=== PATIENT | female | born 1985 | race American Indian/Alaskan Native ===

== ENCOUNTER 2016-08-30 16:06 | Emergency (ER) | payer SELFPAY ==
--- NOTE | 2016-08-30 19:58 | Emergency Department Report ---
ED ENT HPI - General Chief complaint: Dental/Oral Stated complaint: TOOTHACHE Time Seen by Provider: 08/30/16 19:25 Source: patient Mode of arrival: Ambulatory Limitations: No Limitations - History of Present Illness Initial comments: Patient comes into the ER today with complaints of left upper dental pain as well as left facial pain. Patient states that she has had a bad tooth in the area for some time but it has not been bothering her until the past few days. Patient has been putting [id number] medication on the tooth without any relief. Patient does note that she has had no appointment with her dentist in 5 days. Patient primarily comes in today due to the pain. MD complaint: tooth pain -: days(s) (3) - Related Data Previous Rx's Medication Instructions Recorded Last Taken Type Amoxicillin 1,000 mg PO BID #40 capsule 08/30/16 Unknown Rx Fluconazole [Diflucan TAB] 150 mg PO Q72HR PRN #4 tablet 08/30/16 Unknown Rx traMADol [Ultram] 50 mg PO Q4HR PRN #20 tablet 08/30/16 Unknown Rx Allergies Allergy/AdvReac Type Severity Reaction Status Date / Time No Known Allergies Allergy Verified 08/30/16 16:30 ED Dental HPI - General Chief complaint: Dental/Oral Stated complaint: TOOTHACHE Time Seen by Provider: 08/30/16 19:25 Source: patient Mode of arrival: Ambulatory Limitations: No Limitations - Related Data Previous Rx's Medication Instructions Recorded Last Taken Type Amoxicillin 1,000 mg PO BID #40 capsule 08/30/16 Unknown Rx Fluconazole [Diflucan TAB] 150 mg PO Q72HR PRN #4 tablet 08/30/16 Unknown Rx traMADol [Ultram] 50 mg PO Q4HR PRN #20 tablet 08/30/16 Unknown Rx Allergies Allergy/AdvReac Type Severity Reaction Status Date / Time No Known Allergies Allergy Verified 08/30/16 16:30 ED Review of Systems ROS: Stated complaint: TOOTHACHE Other details as noted in HPI Constitutional: denies: chills, fever Eyes: denies: eye pain, eye discharge, vision change ENT: dental pain. denies: ear pain, throat pain Respiratory: denies: cough, shortness of breath, wheezing Cardiovascular: denies: chest pain, palpitations Endocrine: no symptoms reported Gastrointestinal: denies: abdominal pain, nausea, diarrhea Genitourinary: denies: urgency, dysuria, discharge Musculoskeletal: denies: back pain, joint swelling, arthralgia Skin: denies: rash, lesions Neurological: denies: headache, weakness, paresthesias Psychiatric: denies: anxiety, depression Hematological/Lymphatic: denies: easy bleeding, easy bruising ED Past Medical Hx - Past Medical History Previous Medical History?: No Hx Hypertension: No Hx Congestive Heart Failure: No Hx Diabetes: No Hx Deep Vein Thrombosis: No Hx Renal Disease: No Hx Sickle Cell Disease: No Hx Seizures: No Hx Asthma: No Hx COPD: No Hx HIV: No - Surgical History Additional Surgical History: X 2 - Social History Smoking Status: Current Every Day Smoker Substance Use Type: None - Medications Home Medications: Home Medications Medication Instructions Recorded Confirmed Last Taken Type Amoxicillin 1,000 mg PO BID #40 capsule 08/30/16 Unknown Rx Fluconazole [Diflucan TAB] 150 mg PO Q72HR PRN #4 tablet 08/30/16 Unknown Rx traMADol [Ultram] 50 mg PO Q4HR PRN #20 tablet 08/30/16 Unknown Rx ED Physical Exam - General Limitations: No Limitations General appearance: alert, in no apparent distress - Head Head exam: Present: atraumatic, normocephalic - Eye Eye exam: Present: normal appearance, PERRL - ENT ENT exam: Present: mucous membranes moist, TM's normal bilaterally, normal external ear exam, other (left upper dental cavities with [id number] dental filling noted. Mild surrounding gum inflammation without any obvious abscess noted. Left maxillary sinus tenderness. Left greater than right nasal mucosa redness and turbinate swelling.) - Neck Neck exam: Present: normal inspection - Respiratory Respiratory exam: Present: normal lung sounds bilaterally. Absent: respiratory distress - Cardiovascular Cardiovascular Exam: Present: regular rate, normal rhythm. Absent: systolic murmur, diastolic murmur, rubs, gallop - GI/Abdominal GI/Abdominal exam: Present: soft, normal bowel sounds - Extremities Exam Extremities exam: Present: normal inspection - Back Exam Back exam: Present: normal inspection - Neurological Exam Neurological exam: Present: alert, oriented X3 - Psychiatric Psychiatric exam: Present: normal affect, normal mood - Skin Skin exam: Present: warm, dry, intact, normal color. Absent: rash ED Course Vital Signs 08/30/16 16:25 Temperature 98.9 F Pulse Rate 65 Respiratory 17 Rate Blood Pressure 115/57 O2 Sat by Pulse 100 Oximetry ED Medical Decision Making - Medical Decision Making Patient is nontoxic and hemodynamically stable. I will start patient on some antibiotics and pain medications and encourage patient to keep her dental appointment next week. Patient is in agreement with treatment plan the patient is stable for discharge. Critical care attestation.: If time is entered above; I have spent that time in minutes in the direct care of this critically ill patient, excluding procedure time. ED Disposition Clinical Impression: Pain, dental, Facial pain Disposition: DC- TO HOME OR SELFCARE Is pt being admited?: No Does the pt Need Aspirin: No Condition: Good Instructions: Toothache (ED), Sinusitis (ED) Prescriptions: Amoxicillin 1,000 mg PO BID #40 capsule traMADol [Ultram] 50 mg PO Q4HR PRN #20 tablet PRN Reason: Pain Fluconazole [Diflucan TAB] 150 mg PO Q72HR PRN #4 tablet PRN Reason: Vaginal Irritation Referrals: PRIMARY CARE, [Primary Care Provider] - 3-5 Days Forms: Work/School Release Form(ED) Time of Disposition: 19:58
[2016-08-30 20:06] VITALS: BP 121/76
== END 2016-08-30 20:05 | disposition home or self-care (01) ==
LOC: ED 16:06
DX: K08.89 Other specified disorders of teeth and supporting structures (principal); R51 Headache; F17.200 Nicotine dependence, unspecified, uncomplicated
CPT/HCPCS: 99282

== ENCOUNTER 2016-09-01 09:03 | Emergency (ER) | payer SELFPAY ==
[2016-09-01 09:10] VITALS: BP 116/63
[2016-09-01] MEDS ORDERED: CLEOCIN IM ONE (11:32)
[2016-09-01] MEDS ORDERED: ZOFRAN ODT PO ONE (11:32)
[2016-09-01] MEDS ORDERED: MORPHINE IM ONE (11:32)
[2016-09-01] MEDS ORDERED: TORADOL IM ONE (11:32)
--- NOTE | 2016-09-01 11:39 | Emergency Department Report ---
ED ENT HPI - General Chief complaint: Pain General Stated complaint: LEFT SIDE OF FACE SWELLING Time Seen by Provider: 09/01/16 11:22 Source: patient Mode of arrival: Ambulatory Limitations: No Limitations - History of Present Illness Initial comments: PT c/o that her "whole face is swollen" PT states she was seen on Friday after having L upper toothache x 3 days. PT states her last dental visit was a year ago. PT states she had a cavity in her L upper tooth and it gradually broke off. PT states she bought an otc dental filling that will stay in place for two weeks and then need to be removed by a Dentist. PT states that helped her pain for a day, but when it was no longer helping, she came into this ED. PT states she was dx with sinus infection and given antibiotics. PT states that she started the antibiotics on Friday and the next day the left side of her face started to swell. PT states she has a dental appointment on Fri. PT states the tramadol is not helping and her pain is 10/10. MD complaint: tooth pain (and L sided facial swelling ) Onset/Timin -: Gradual, days(s) 1 - tooth pain, dental decay, white filling Severity: severe Severity scale (0 -10): 10 Quality: constant Consistency: constant Improves with: other (heat helps briefly ) Worsens with: eating, other (palpation) Context- Dental: history of dental caries, poor dental care (last dental visit 1 year ago ) Associated Symptoms: denies: fever, pain with swallowing, sore throat - Related Data Previous Rx's Medication Instructions Recorded Last Taken Type Amoxicillin 1,000 mg PO BID #40 capsule 08/30/16 Unknown Rx Fluconazole [Diflucan TAB] 150 mg PO Q72HR PRN #4 tablet 08/30/16 Unknown Rx Acetaminophen/Codeine [Tylenol #3] 1 tab PO Q6H PRN #12 tab 09/01/16 Unknown Rx Chlorhexidine Mouthwash [Peridex] 15 ml MM BID 7 Days 09/01/16 Unknown Rx Clindamycin [Clindamycin CAP] 300 mg PO Q8H #30 cap 09/01/16 Unknown Rx Ibuprofen [Motrin] 600 mg PO Q8H PRN #15 tablet 09/01/16 Unknown Rx Allergies Allergy/AdvReac Type Severity Reaction Status Date / Time No Known Allergies Allergy Verified 08/30/16 16:30 ED Dental HPI - General Chief complaint: Pain General Stated complaint: LEFT SIDE OF FACE SWELLING Time Seen by Provider: 09/01/16 11:22 Source: patient Mode of arrival: Ambulatory Limitations: No Limitations - Related Data Previous Rx's Medication Instructions Recorded Last Taken Type Amoxicillin 1,000 mg PO BID #40 capsule 08/30/16 Unknown Rx Fluconazole [Diflucan TAB] 150 mg PO Q72HR PRN #4 tablet 08/30/16 Unknown Rx Acetaminophen/Codeine [Tylenol #3] 1 tab PO Q6H PRN #12 tab 09/01/16 Unknown Rx Chlorhexidine Mouthwash [Peridex] 15 ml MM BID 7 Days 09/01/16 Unknown Rx Clindamycin [Clindamycin CAP] 300 mg PO Q8H #30 cap 09/01/16 Unknown Rx Ibuprofen [Motrin] 600 mg PO Q8H PRN #15 tablet 09/01/16 Unknown Rx Allergies Allergy/AdvReac Type Severity Reaction Status Date / Time No Known Allergies Allergy Verified 08/30/16 16:30 ED Review of Systems ROS: Stated complaint: LEFT SIDE OF FACE SWELLING Other details as noted in HPI Comment: All other systems reviewed and negative Constitutional: denies: chills, fever ENT: dental pain Gastrointestinal: other (tolerating Amoxil ). denies: abdominal pain, nausea, vomiting, diarrhea Genitourinary: denies: abnormal menses Neurological: headache. denies: abnormal gait ED Past Medical Hx - Past Medical History Previous Medical History?: Yes Hx Hypertension: No Hx Congestive Heart Failure: No Hx Diabetes: No Hx Deep Vein Thrombosis: No Hx Renal Disease: No Hx Sickle Cell Disease: No Hx Seizures: No Hx Asthma: No Hx COPD: No Hx HIV: No Additional medical history: Toothache pain, Sinusitis - Surgical History Past Surgical History?: Yes Additional Surgical History: X 2 - Social History Smoking Status: Current Every Day Smoker Substance Use Type: Prescribed - Medications Home Medications: Home Medications Medication Instructions Recorded Confirmed Last Taken Type Amoxicillin 1,000 mg PO BID #40 capsule 08/30/16 Unknown Rx Fluconazole [Diflucan TAB] 150 mg PO Q72HR PRN #4 tablet 08/30/16 Unknown Rx Acetaminophen/Codeine [Tylenol #3] 1 tab PO Q6H PRN #12 tab 09/01/16 Unknown Rx Chlorhexidine Mouthwash [Peridex] 15 ml MM BID 7 Days 09/01/16 Unknown Rx Clindamycin [Clindamycin CAP] 300 mg PO Q8H #30 cap 09/01/16 Unknown Rx Ibuprofen [Motrin] 600 mg PO Q8H PRN #15 tablet 09/01/16 Unknown Rx ED Physical Exam - General Limitations: No Limitations General appearance: alert, in no apparent distress - Head Head exam: Present: atraumatic, normocephalic, other (L facial swelling noted to L maxillary region. ) - Eye Eye exam: Present: normal appearance, PERRL, EOMI. Absent: conjunctival injection, nystagmus - ENT ENT exam: Present: normal orophraynx, mucous membranes moist, TM's normal bilaterally, normal external ear exam - Expanded ENT Exam Expanded Mouth exam: Present: tongue normal. Absent: drooling, trismus, muffled voice Teeth exam: Present: dental caries (multiple teeth with dental decay ), dental tenderness # (11, 12 and 13 ), gingival enlargement (no palpable abscess, but gums erythematous and edematous ) 1 - Dental Tenderness, Other (dental decay) Throat exam: Positive: normal inspection. Negative: tonsillomegaly, tonsillar exudate, R peritonsillar mass, L peritonsillar mass - Neck Neck exam: Present: normal inspection. Absent: tenderness, full ROM - Respiratory Respiratory exam: Present: normal lung sounds bilaterally. Absent: respiratory distress - Cardiovascular Cardiovascular Exam: Present: regular rate, normal rhythm, normal heart sounds - Extremities Exam Extremities exam: Present: normal inspection, full ROM - Back Exam Back exam: Present: normal inspection, full ROM - Neurological Exam Neurological exam: Present: alert, oriented X3 - Psychiatric Psychiatric exam: Present: normal affect, normal mood - Skin Skin exam: Present: warm, dry, intact, normal color. Absent: erythema ED Course Vital Signs 09/01/16 09:05 Temperature 98.2 F Pulse Rate 68 Respiratory 20 Rate Blood Pressure 116/63 O2 Sat by Pulse 100 Oximetry - Reevaluation(s) Reevaluation #1: 09/01/16 12:08 PT aware of dx and plan of care. PT aware she must follow up with Dentist. PT has no questions at this time. Reevaluation #2: 09/01/16 12:30 PT given Clindamycin/ toradol/ morphine/ zofran. PT reports decrease in pain. PT has no questions at this time. - Pulse Oximetry Interpretation Digit-Finger Initial Pulse Oximetry Readin Actions Taken: none ED Medical Decision Making - Differential Diagnosis abscess, cellulitis Critical Care Time: No Critical care attestation.: If time is entered above; I have spent that time in minutes in the direct care of this critically ill patient, excluding procedure time. ED Disposition Disposition: DC- TO HOME OR SELFCARE Is pt being admited?: No Does the pt Need Aspirin: No Condition: Stable Instructions: Dental Abscess (ED) Additional Instructions: Swish and spit with warm salt water at least 4 times a day Good oral hygiene No driving or ETOH after taking Tylenol #3 Do not take Tylenol #3 and Ultram at the same time Stop Amoxil Start Clindamycin Return in 2 days for recheck, sooner if worsening Prescriptions: Acetaminophen/Codeine [Tylenol #3] 1 tab PO Q6H PRN #12 tab PRN Reason: Pain , Severe (7-10) Chlorhexidine Mouthwash [Peridex] 15 ml MM BID 7 Days Clindamycin [Clindamycin CAP] 300 mg PO Q8H #30 cap Ibuprofen [Motrin] 600 mg PO Q8H PRN #15 tablet PRN Reason: Pain Referrals: PRIMARY CARE, [Primary Care Provider] - 3-5 Days DERICK DE LA VEGA MD [Staff Physician] - 3-5 Days [facility] [Outside] - 3-5 Days [facility] [Outside] - 3-5 Days Forms: Accompanied Note, Work/School Release Form(ED) Time of Disposition: 12:10
== END 2016-09-01 12:41 | disposition home or self-care (01) ==
LOC: ED 09:03
DX: K08.89 Other specified disorders of teeth and supporting structures (principal); R60.9 Edema, unspecified; F17.210 Nicotine dependence, cigarettes, uncomplicated
CPT/HCPCS: 96372; 99282; J1885; J2270; Q0162

== ENCOUNTER 2016-09-22 12:28 | Emergency (ER) | payer SELFPAY ==
[2016-09-22] MEDS ORDERED: TORADOL IM ONE ×2 (15:48→15:56)
[2016-09-22 15:54] VITALS: BP 102/65
--- NOTE | 2016-09-22 16:38 | Cat Scan Report ---
FINAL REPORT PROCEDURE: CT facial bones without contrast. TECHNIQUE: Computerized tomography of the facial bones and soft tissues with axial, sagittal and coronal sections performed from the cranial aspect of the frontal sinuses to the caudal portion of the mandible without contrast material. HISTORY: Facial abscess, left upper tooth. COMPARISON: No prior studies are available for comparison. FINDINGS: The facial bones appear intact. There are no fractures nor signs of osteomyelitis. The maxilla and mandible appear intact. There are no lucencies around any of the visible teeth roots to suggest a tooth abscess. There is a lucency involving the posterior crown enamel of tooth number 12. This likely represented a dental dionisio. Referral to a dentist is recommended. There is mild infiltration of the subcutaneous fat adjacent to this tooth. This is consistent with inflammation. There is no fluid to suggest a soft tissue abscess. The mastoid air cells and paranasal sinuses are clear. IMPRESSION: Probable dental dionisio involving tooth 12. Probable mild inflammation in the overlying soft tissues.
--- NOTE | 2016-09-22 18:29 | Emergency Department Report ---
Entered by TOSHIA OWENS, acting as scribe for CHESTER BEGUM NP. ED ENT HPI - General Chief complaint: Dental/Oral Stated complaint: TOOTHACHE/ABSCESS Time Seen by Provider: 09/22/16 15:29 Source: patient Mode of arrival: Ambulatory Limitations: No Limitations - History of Present Illness Initial comments: This is a 31-year-old female patient well-nourished with nontoxic or ill in appearance that presents for evaluation of dental abscess. Patient stated was seen in the ED two weeks ago, was found to have an dental abscess, and was started on antibiotics (Clindamycin) which subsided her swelling. Initially the abscess resolved, but returned 3 days after she completed the abx course. Patient stated she did follow-up with a dentist and was given amoxicillin with no relief. Patient stated last night her left facial swelling had returned and she stated she thinks the abscess is returned. Patient denies any pus, drainage , stiff neck, CP, SOB, fever, chills, headache, numbness, tingling, n/v, abd pain. Patient denies any allergies. Denies PMH. MD complaint: tooth pain -: Gradual, week(s) (2) Location: tooth # (11,12,13) Severity: moderate Consistency: constant Improves with: other (Clindamycin) Worsens with: none Context- Dental: history of dental caries, poor dental care Associated Symptoms: gum swelling, toothache. denies: fever, cough, pain with swallowing, sore throat, tinnitus, hearing loss, discharge from ear, rhinorrhea - Related Data Previous Rx's Medication Instructions Recorded Last Taken Type Amoxicillin 1,000 mg PO BID #40 capsule 08/30/16 Unknown Rx Fluconazole [Diflucan TAB] 150 mg PO Q72HR PRN #4 tablet 08/30/16 Unknown Rx Acetaminophen/Codeine [Tylenol #3] 1 tab PO Q6H PRN #12 tab 09/01/16 Unknown Rx Chlorhexidine Mouthwash [Peridex] 15 ml MM BID 7 Days 09/01/16 Unknown Rx Clindamycin [Clindamycin CAP] 300 mg PO Q8H #30 cap 09/01/16 Unknown Rx Ibuprofen [Motrin] 600 mg PO Q8H PRN #15 tablet 09/01/16 Unknown Rx Clindamycin [Clindamycin CAP] 450 mg PO Q8HR 7 Days 09/22/16 Unknown Rx Ibuprofen [Motrin 600 MG tab] 600 mg PO Q8H PRN #20 tablet 09/22/16 Unknown Rx predniSONE [Deltasone] 20 mg PO BID #10 tab 09/22/16 Unknown Rx Allergies Allergy/AdvReac Type Severity Reaction Status Date / Time No Known Allergies Allergy Verified 09/22/16 13:23 ED Dental HPI - General Chief complaint: Dental/Oral Stated complaint: TOOTHACHE/ABSCESS Time Seen by Provider: 09/22/16 15:29 Source: patient Mode of arrival: Ambulatory Limitations: No Limitations - Related Data Previous Rx's Medication Instructions Recorded Last Taken Type Amoxicillin 1,000 mg PO BID #40 capsule 08/30/16 Unknown Rx Fluconazole [Diflucan TAB] 150 mg PO Q72HR PRN #4 tablet 08/30/16 Unknown Rx Acetaminophen/Codeine [Tylenol #3] 1 tab PO Q6H PRN #12 tab 09/01/16 Unknown Rx Chlorhexidine Mouthwash [Peridex] 15 ml MM BID 7 Days 09/01/16 Unknown Rx Clindamycin [Clindamycin CAP] 300 mg PO Q8H #30 cap 09/01/16 Unknown Rx Ibuprofen [Motrin] 600 mg PO Q8H PRN #15 tablet 09/01/16 Unknown Rx Clindamycin [Clindamycin CAP] 450 mg PO Q8HR 7 Days 09/22/16 Unknown Rx Ibuprofen [Motrin 600 MG tab] 600 mg PO Q8H PRN #20 tablet 09/22/16 Unknown Rx predniSONE [Deltasone] 20 mg PO BID #10 tab 09/22/16 Unknown Rx Allergies Allergy/AdvReac Type Severity Reaction Status Date / Time No Known Allergies Allergy Verified 09/22/16 13:23 ED Review of Systems Comment: All other systems reviewed and negative Constitutional: no symptoms reported. denies: chills, fever Eyes: denies: eye pain ENT: dental pain. denies: ear pain, throat pain, hearing loss, epistaxis Respiratory: no symptoms reported. denies: cough, shortness of breath Cardiovascular: denies: chest pain, palpitations Endocrine: no symptoms reported Gastrointestinal: denies: abdominal pain, nausea, vomiting Genitourinary: denies: urgency, dysuria, discharge Musculoskeletal: denies: back pain, joint swelling, arthralgia Skin: denies: rash Neurological: denies: headache Psychiatric: denies: anxiety, depression Hematological/Lymphatic: denies: easy bleeding, easy bruising ED Past Medical Hx - Past Medical History Hx Hypertension: No Hx Congestive Heart Failure: No Hx Diabetes: No Hx Deep Vein Thrombosis: No Hx Renal Disease: No Hx Sickle Cell Disease: No Hx Seizures: No Hx Asthma: No Hx COPD: No Hx HIV: No Additional medical history: Toothache pain, Sinusitis - Surgical History Additional Surgical History: X 2 - Social History Smoking Status: Never Smoker Substance Use Type: Alcohol - Medications Home Medications: Home Medications Medication Instructions Recorded Confirmed Last Taken Type Amoxicillin 1,000 mg PO BID #40 capsule 08/30/16 Unknown Rx Fluconazole [Diflucan TAB] 150 mg PO Q72HR PRN #4 tablet 08/30/16 Unknown Rx Acetaminophen/Codeine [Tylenol #3] 1 tab PO Q6H PRN #12 tab 09/01/16 Unknown Rx Chlorhexidine Mouthwash [Peridex] 15 ml MM BID 7 Days 09/01/16 Unknown Rx Clindamycin [Clindamycin CAP] 300 mg PO Q8H #30 cap 09/01/16 Unknown Rx Ibuprofen [Motrin] 600 mg PO Q8H PRN #15 tablet 09/01/16 Unknown Rx Clindamycin [Clindamycin CAP] 450 mg PO Q8HR 7 Days 09/22/16 Unknown Rx Ibuprofen [Motrin 600 MG tab] 600 mg PO Q8H PRN #20 tablet 09/22/16 Unknown Rx predniSONE [Deltasone] 20 mg PO BID #10 tab 09/22/16 Unknown Rx ED Physical Exam - General Limitations: No Limitations General appearance: alert, in no apparent distress - Head Head exam: Present: atraumatic, normocephalic, normal inspection - Eye Eye exam: Present: normal appearance, PERRL, EOMI. Absent: scleral icterus, conjunctival injection, nystagmus, periorbital swelling, periorbital tenderness Pupils: Present: normal accommodation - ENT ENT exam: Present: normal exam, normal orophraynx, mucous membranes moist, TM's normal bilaterally, normal external ear exam - Expanded ENT Exam Expanded Mouth exam: Present: normal external inspection, tongue normal. Absent: drooling, trismus, muffled voice, tongue elevation, laceration Teeth exam: Present: dental caries, dental tenderness # (11,12,13), gingival enlargement, other (Uvula midline. No palpable abscess. No flutance noted. No swelling. No pus or drianage noted.) 1 - Dental Tenderness Throat exam: Positive: normal inspection. Negative: tonsillar erythema, tonsillomegaly, tonsillar exudate, R peritonsillar mass, L peritonsillar mass - Neck Neck exam: Present: normal inspection, full ROM. Absent: tenderness, meningismus, lymphadenopathy, thyromegaly - Respiratory Respiratory exam: Present: normal lung sounds bilaterally, respiratory distress. Absent: wheezes, rales, rhonchi, stridor, chest wall tenderness, accessory muscle use, decreased breath sounds, prolonged expiratory - Cardiovascular Cardiovascular Exam: Present: regular rate, normal rhythm, normal heart sounds. Absent: bradycardia, tachycardia, irregular rhythm - GI/Abdominal GI/Abdominal exam: Present: soft. Absent: tenderness, guarding, rebound, rigid - Extremities Exam Extremities exam: Present: normal inspection, full ROM, normal capillary refill. Absent: tenderness, pedal edema, joint swelling, calf tenderness - Back Exam Back exam: Present: normal inspection, full ROM. Absent: tenderness, CVA tenderness (R), CVA tenderness (L), muscle spasm, paraspinal tenderness, vertebral tenderness, rash noted - Neurological Exam Neurological exam: Present: alert, oriented X3, CN II-XII intact, normal gait, reflexes normal - Psychiatric Psychiatric exam: Present: normal affect, normal mood - Skin Skin exam: Present: warm, dry, intact, normal color ED Course Vital Signs 09/22/16 09/22/16 09/22/16 13:23 15:52 16:14 Temperature 98.9 F 98.2 F Pulse Rate 70 62 Respiratory 20 16 Rate Blood Pressure 122/79 Blood Pressure 102/65 [Left] O2 Sat by Pulse 10 L 99 100 Oximetry - Reevaluation(s) Reevaluation #1: 09/22/16 17:16 Patient is able to speak in full sentences with no signs of distress noted. ED Medical Decision Making - Medical Decision Making Ed course: This is a 31-year-old female that presents with dental caries and gingivitis 1- patient was examined by myself. A CT scan of the face without contrast has been obtained. Dictated by Dr. Serrano. Impression; probable dental caries involving tooth 12. Probable mild inflammation and over lying soft tissues. There are no visible tooth roots to suggest a tooth abscess. Patient was notified of CT findings with the further was noted by the patient. 2- patient received Toradol and Solu-Medrol IM and ED. 3- patient was discharged with clindamycin 300 mg by mouth and was instructed to this full course of antibiotics that was prescribed. 4- patient was referred to a dentist and patient was instructed to follow-up in 24 hours or if symptoms such as increased swelling, pus, drainage, fever, chills , stiff neck, headache, blurry vision chest and short of breath return to emergency room as was possible. 5- at time time of discharge, the patient does not seem toxic or ill in appearance. No acute signs of distress noted. Patient agrees to discharge treatment plan of care. No further questions noted by the patient. ED Disposition Clinical Impression: Dental caries, Gingivitis Disposition: DC- TO HOME OR SELFCARE Is pt being admited?: No Does the pt Need Aspirin: No Condition: Stable Instructions: Dental Caries (ED), Gingivitis (ED), Clindamycin (By mouth), Prednisone (By mouth) Additional Instructions: follow-up in 24 hours with dentist or if symptoms such as increased swelling, pus, drainage, fever, chills, stiff neck, headache, blurry vision chest and short of breath return to emergency room as was possible. Take full course of antibiotics and prednisone as prescribed. Prescriptions: Clindamycin [Clindamycin CAP] 450 mg PO Q8HR 7 Days Ibuprofen [Motrin 600 MG tab] 600 mg PO Q8H PRN #20 tablet PRN Reason: Pain predniSONE [Deltasone] 20 mg PO BID #10 tab Referrals: PRIMARY CAREMD [Primary Care Provider] - 3-5 Days [facility] [Outside] - 24 Hours ELHAM YORK JR, MD [Staff Physician] - 3-5 Days [facility] [Outside] - 3-5 Days Forms: Work/School Release Form(ED) This documentation as recorded by the scribROMAN jay SHALANE,accurately reflects the service I personally performed and the decisions made by me,CHESTER BEGUM, NICOLE.
== END 2016-09-22 18:35 | disposition home or self-care (01) ==
LOC: ED 12:28
DX: K02.9 Dental caries, unspecified (principal); K05.10 Chronic gingivitis, plaque induced
CPT/HCPCS: 70486; 96372; 99283; J1885; J2920

== ENCOUNTER 2017-08-13 14:21 | Emergency (ER) | payer SELFPAY ==
--- NOTE | 2017-08-13 16:21 | XRay Report ---
FINAL REPORT EXAM: XR HAND 3+V RT HISTORY: pain after pick out hand heavy tote at work COMPARISON: None. TECHNIQUE: Two views of the right hand FINDINGS: There is normal alignment without acute fracture or dislocation. The joint spaces are preserved. The overlying soft tissues are intact. IMPRESSION: No acute bony abnormality of the right hand.
[2017-08-13 20:18] VITALS: BP 101/65
--- NOTE | 2017-08-13 20:28 | Emergency Department Report ---
Upper Extremity - HPI Chief Complaint: Extremity Injury, Upper Stated Complaint: RT FINGER PAIN TO WRIST Time Seen by Provider: 08/13/17 20:22 Upper Extremity: Right Middle Finger Occurred When: >5 Days Mechanism: Hyperflexion Symptoms: Yes Pain with Movement, No Deformity, No Limited Range of Movement, No Numbness, No Weakness, No Swelling, No Bruising/Ecchymosis, No Laceration or Abrasion ED Review of Systems ROS: Stated complaint: RT FINGER PAIN TO WRIST Other details as noted in HPI Comment: All other systems reviewed and negative Constitutional: denies: chills, fever ENT: denies: throat pain Respiratory: denies: cough Cardiovascular: denies: chest pain, palpitations ED Past Medical Hx - Past Medical History Previous Medical History?: No Hx Hypertension: No Hx Congestive Heart Failure: No Hx Diabetes: No Hx Deep Vein Thrombosis: No Hx Renal Disease: No Hx Sickle Cell Disease: No Hx Seizures: No Hx Asthma: No Hx COPD: No Hx HIV: No Additional medical history: Toothache pain, Sinusitis - Surgical History Past Surgical History?: Yes Additional Surgical History: X 2 - Social History Smoking Status: Never Smoker Substance Use Type: None - Medications Home Medications: Home Medications Medication Instructions Recorded Confirmed Last Taken Type Amoxicillin 1,000 mg PO BID #40 capsule 08/30/16 Unknown Rx Fluconazole [Diflucan TAB] 150 mg PO Q72HR PRN #4 tablet 08/30/16 Unknown Rx Acetaminophen/Codeine [Tylenol #3] 1 tab PO Q6H PRN #12 tab 09/01/16 Unknown Rx Chlorhexidine Mouthwash [Peridex] 15 ml MM BID 7 Days bottle 09/01/16 Unknown Rx Clindamycin [Clindamycin CAP] 300 mg PO Q8H #30 cap 09/01/16 Unknown Rx Ibuprofen [Motrin] 600 mg PO Q8H PRN #15 tablet 09/01/16 Unknown Rx Clindamycin [Clindamycin CAP] 450 mg PO Q8HR 7 Days capsule 09/22/16 Unknown Rx Ibuprofen [Motrin 600 MG tab] 600 mg PO Q8H PRN #20 tablet 09/22/16 Unknown Rx predniSONE [Deltasone] 20 mg PO BID #10 tab 09/22/16 Unknown Rx Upper Extremity Exam - Exam General: Vital signs noted. No distress. Alert and acting appropriately. Head and Torso: No HEENT Abnormality, No Neck Tenderness, No Chest/Lungs Abnormality, No Abdominal Tenderness, No Back Tenderness Shoulder Exam: Yes Normal Range of Motion in Shoulder, No Shoulder Tenderness, No Clavicle Tenderness, No Shoulder Deformity, No AC Joint Tenderness Arm Exam: No Arm/Humerus Tenderness Wrist: No Wrist Tenderness, No Normal ROM in Wrist, No Wrist Deformity, No Snuffbox Tenderness, No Pain with Axial Thumb Compression Hand: Yes Digit Tenderness, No Hand Tenderness, No Hand Deformity, No Normal ROM in Digit(s), No Digit(s) Deformity, No Tendon Dysfunction CMS Exam: Yes Normal Distal Pulses, Yes Normal Capillary Refill, Yes Normal Distal Sensation, No Broken Skin ED Course Vital Signs 08/13/17 08/13/17 08/13/17 15:22 20:03 20:17 Temperature 98.5 F Pulse Rate 68 60 Respiratory 18 16 16 Rate Blood Pressure 95/49 Blood Pressure 101/65 [Right] O2 Sat by Pulse 99 100 Oximetry ED Medical Decision Making - Radiology Data Radiology results: report reviewed Right hand x-ray showed no acute abnormalities. Critical care attestation.: If time is entered above; I have spent that time in minutes in the direct care of this critically ill patient, excluding procedure time. ED Disposition Clinical Impression: Sprain of right middle finger Disposition: DC-01 TO HOME OR SELFCARE Is pt being admited?: No Condition: Stable Instructions: Hand Sprain (ED) Referrals: PRIMARY CARE, [Primary Care Provider] - 3-5 Days
== END 2017-08-13 20:40 | disposition home or self-care (01) ==
LOC: ED 14:21
DX: S63.612A Unspecified sprain of right middle finger, initial encounter (principal); X58.XXXA Exposure to other specified factors, initial encounter; Y93.89 Activity, other specified; Y92.89 Other specified places as the place of occurrence of the external cause; Y99.8 Other external cause status
CPT/HCPCS: 99283

== ENCOUNTER 2020-09-08 03:54 | Emergency (ER) | payer MEDICAID ==
[2020-09-08 04:36] VITALS: BP 124/53
[2020-09-08] MEDS ORDERED: IBUPROFEN 800 MG TAB PO ONE (04:39)
[2020-09-08] MEDS ORDERED: AMOXICILLIN/K CLAV 875/125MG TAB PO ONE (07:15)
[2020-09-08] MEDS ORDERED: DEXAMETHASONE 4 MG TAB PO ONE (07:16)
--- NOTE | 2020-09-08 07:17 | Emergency Department Report ---
HPI - General Chief Complaint: Sore Throat Time Seen by Provider: 09/08/20 06:57 - HPI HPI: This is a 35-year-old -N[place]alese female presents to emergency department with a complaint of a 2-day history of sore throat, body aches, fever and chills. Patient tried some NyQuil last night without much relief. She denies any past medical history. No recent travel or sick contacts at home. She is an occasional tobacco smoker. She denies any chest pain, shortness of breath, abdominal pain, dysuria, lower extremity swelling. Currently her throat pain is 7 out of 10 in intensity and worsens when she tries to swallow. She is able to swallow liquids and solids. ED Past Medical Hx - Past Medical History Previous Medical History?: Yes Hx Hypertension: No Hx Congestive Heart Failure: No Hx Diabetes: No Hx Deep Vein Thrombosis: No Hx Renal Disease: No Hx Sickle Cell Disease: No Hx Seizures: No Hx Asthma: No Hx COPD: No Hx HIV: No Additional medical history: Toothache pain, Sinusitis - Surgical History Past Surgical History?: Yes Additional Surgical History: X 2 - Social History Smoking Status: Never Smoker Substance Use Type: None - Medications Home Medications: Home Medications Medication Instructions Recorded Confirmed Last Taken Type Amoxicillin 1,000 mg PO BID #40 capsule 08/30/16 Unknown Rx Fluconazole (Nf) [Diflucan TAB] 150 mg PO Q72HR PRN #4 tablet 08/30/16 Unknown Rx Acetaminophen/Codeine [Tylenol #3] 1 tab PO Q6H PRN #12 tab 09/01/16 Unknown Rx Chlorhexidine Mouthwash [Peridex] 15 ml MM BID 7 Days bottle 09/01/16 Unknown Rx Clindamycin [Clindamycin CAP] 300 mg PO Q8H #30 cap 09/01/16 Unknown Rx Ibuprofen [Motrin] 600 mg PO Q8H PRN #15 tablet 09/01/16 Unknown Rx Clindamycin [Clindamycin CAP] 450 mg PO Q8HR 7 Days capsule 09/22/16 Unknown Rx Ibuprofen [Motrin 600 MG tab] 600 mg PO Q8H PRN #20 tablet 09/22/16 Unknown Rx predniSONE [Deltasone] 20 mg PO BID #10 tab 09/22/16 Unknown Rx Naproxen [Naprosyn] 500 mg PO BID #14 tablet 08/13/17 Unknown Rx Amoxicillin/Potassium Clav 1 each PO BID #14 tablet 09/08/20 Unknown Rx [Augmentin 875-125 Tablet] ED Review of Systems ROS: Stated complaint: SORE THROAT, BODY PAIN Other details as noted in HPI Comment: All other systems reviewed and negative Constitutional: chills, fever Eyes: denies: eye pain, vision change ENT: throat pain. denies: ear pain Respiratory: denies: cough, shortness of breath Cardiovascular: denies: chest pain, palpitations Gastrointestinal: denies: abdominal pain, vomiting Genitourinary: denies: dysuria, discharge Musculoskeletal: myalgia. denies: joint swelling Skin: denies: rash, lesions Neurological: denies: weakness, numbness Physical Exam - Physical Exam Vital Signs: Vital Signs 09/08/20 04:35 Temperature 101.4 F H Pulse Rate 89 Respiratory 18 Rate Blood Pressure 124/53 [Right] O2 Sat by Pulse 97 Oximetry Physical Exam: GENERAL: The patient is well-developed well-nourished. HENT: Normocephalic. Atraumatic. Patient has moist mucous membranes. There is bilateral tonsillar hypertrophy, erythema and tonsillar exudates. No drooling or trismus. EYES: Extraocular motions are intact. NECK: Supple. Trachea is midline. CHEST/LUNGS: Clear to auscultation. There is no respiratory distress noted. HEART/CARDIOVASCULAR: Regular. There is no tachycardia. There is no murmur. ABDOMEN: Abdomen is soft, nontender. Patient has normal bowel sounds. SKIN: Skin is warm and dry. NEURO: The patient is awake, alert, and oriented. The patient is cooperative. Normal speech. MUSCULOSKELETAL: There is no tenderness or deformity. There is no limitation range of motion. ED Course Vital Signs 09/08/20 04:35 Temperature 101.4 F H Pulse Rate 89 Respiratory 18 Rate Blood Pressure 124/53 [Right] O2 Sat by Pulse 97 Oximetry ED Medical Decision Making - Medical Decision Making This patient presents with a 1 to 2-day history of some sore throat, generalized body aches, fever and chills. On examination the patient has tonsillar hypertrophy and erythema, as well as bilateral exudates. No drooling or trismus. The patient does not appear in any respiratory or acute distress. She has a low-grade fever of 101.4 F. She was given some ibuprofen for body aches and fever. The patient was given a dose of Decadron for the pharyngitis and a dose of Augmentin. The patient will go home on a course of Augmentin. We discussed using Tylenol and ibuprofen as needed for fever and/or body aches. She has been instructed to follow-up with a primary care physician in the next few days, but to return to the closest emergency department with any worsening of her symptoms or with any acute distress. Critical Care Time: No Critical care attestation.: If time is entered above; I have spent that time in minutes in the direct care of this critically ill patient, excluding procedure time. ED Disposition Clinical Impression: Strep pharyngitis Fever Qualifiers: Fever type: unspecified Qualified Code(s): R50.9 - Fever, unspecified Disposition: TO HOME OR SELFCARE Is pt being admited?: No Condition: Stable Instructions: Fever, Adult, Strep Throat, Adult Additional Instructions: Please follow-up with a primary care physician in the next few days. Take your medications as prescribed. You can take Tylenol every 4-6 hours and ibuprofen every 6-8 hours, using the dosing on the back of the bottle, as needed for fever or discomfort. Return to the emergency department with any worsening of your symptoms, new or concerning symptoms not addressed during this current emergency department visit, or with any acute distress. Prescriptions: Amoxicillin/Potassium Clav [Augmentin 875-125 Tablet] 1 each PO BID #14 tablet Referrals: CINDY WASHINGTON MD [Staff Physician] - 3-5 Days [facility] [Provider Group] - 3-5 Days Time of Disposition: 07:17
== END 2020-09-08 07:41 | disposition home or self-care (01) ==
LOC: ED 03:54
DX: J02.0 Streptococcal pharyngitis (principal); R50.9 Fever, unspecified; Z98.890 Other specified postprocedural states; Z79.899 Other long term (current) drug therapy
CPT/HCPCS: 99282; J8540